=== PATIENT | female | born 1930 | race Caucasian/White ===

== ENCOUNTER 2017-06-10 22:26 | Inpatient (IN) | payer MEDICARE ==
[2017-06-11] MEDS ORDERED: Adacel (T-DAP) 0.5 ML VIAL ONE (00:26)
[2017-06-11 02:20] LABS: PTT 33.6 SEC (22.9-36.1); Prothrombin Time 12.7 SEC (12.0-14.7)
[2017-06-11 02:27] LABS: Hematocrit 41.3 % (36.0-47.0); Mean Platelet Volume 7.9 fL (7.4-10.4); Red Blood Cell (RBC) Count 4.29 mill/uL (4.20-5.40); White Blood Cell (WBC) Count 20.9 thou/uL (4.8-10.8)
[2017-06-11 02:43] LABS: ALT (SGPT) 30 U/L (8-55); AST (SGOT) 40 U/L (5-34); Alkaline Phosphatase 86 U/L (40-150); Anion Gap 15 mmol/L (10-20); BUN (Urea Nitrogen) 17 mg/dL (9.8-20.1); Bilirubin, Total 0.4 mg/dL (0.2-1.2); Calc. Creatinine Clearance 0 mL/min (70-130); Calcium 9.5 mg/dL (7.8-10.44); Carbon Dioxide 23 mmol/L (23-31); Chloride 103 mmol/L (98-107); Estimated GFR-MDRD 66; Globulin 3.4 g/dL (2.4-3.5); Protein, Total 7.4 g/dL (6.0-8.3)
[2017-06-11 02:47] LABS: Band 8 % (5-11); Neutrophil 73 % (42-75)
[2017-06-11] MEDS ORDERED: Acetaminophen 325 MG TAB PO PRN (02:50)
[2017-06-11] MEDS ORDERED: Ondansetron ODT 4 MG TAB SL PRN (02:50)
[2017-06-11] MEDS ORDERED: Ondansetron HCl/PF 4 MG/2 ML Vial IVP PRN ×2 (02:50→03:17)
[2017-06-11] MEDS ORDERED: Promethazine HCl 25 MG/ML VIAL IM PRN (03:17)
[2017-06-11] MEDS ORDERED: Dextrose 5% in Water 1,000 ML IV PRN (03:17)
[2017-06-11] MEDS ORDERED: Dextrose 50% Abboject 50 ML SYRINGE SLOW IVP PRN (03:17)
[2017-06-11] MEDS ORDERED: Ondansetron ODT 4 MG TAB PO PRN (03:17)
[2017-06-11] MEDS ORDERED: Sodium Chloride 0.9% 1,000 ML IV SCH (03:30)
[2017-06-11 03:39] VITALS: BMI 25.2
[2017-06-11] MEDS: Acetaminophen 325 MG TAB PO SCH ×3 (06:00→16:53)
[2017-06-11 06:24] LABS: PTT 29.6 SEC (22.9-36.1); Prothrombin Time 12.7 SEC (12.0-14.7)
[2017-06-11 06:40] LABS: Anion Gap 17 mmol/L (10-20); BUN (Urea Nitrogen) 16 mg/dL (9.8-20.1); Calc. Creatinine Clearance 53 mL/min (70-130); Calcium 9.6 mg/dL (7.8-10.44); Carbon Dioxide 21 mmol/L (23-31); Chloride 101 mmol/L (98-107); Estimated GFR-MDRD 67
--- NOTE | 2017-06-11 08:31 | RAD ---
FRONTAL VIEW CHEST: INDICATION: Fall with chest pain. COMPARISON: 09/26/14. FINDINGS: Lungs are mildly hyperinflated with interstitial prominence. No lobar consolidation, effusion, or d iscrete pneumothorax. Cardiac silhouette is mildly enlarged. IMPRESSION: 1. No focal consolidation. 2. Mild enlargement of cardiac silhouette. 3. Chronic obstructive pulmonary disease. POS: [facility]
--- NOTE | 2017-06-11 08:34 | CT ---
HEAD CT NONCONTRAST: INDICATION: Subdural hemorrhage, followup. FINDINGS: Stable slight nodularity along the left aspect of the posterior portion interhemispheric falx which again may relate to a minute volume of subdural hematoma. Otherwise, no interval acute mass produci ng hemorrhage is seen. There is prominent volume of the sella with internal soft tissue density. T he suprasellar mass has been documented on the preceding brain MRI. IMPRESSION: 1. Redemonstration of minute volume of density along the left aspect of the posterior interhemisphe jorge luis falx which could relate to subdural hemorrhage. 2. Redemonstration of expansile mass correlating to patient's known suprasellar mass. 3. Otherwise, no significant interval detrimental change. POS: [facility]
[2017-06-11] MEDS ORDERED: Famotidine 20 MG TAB PO SCH (09:00)
--- NOTE | 2017-06-11 11:34 | CON ---
DATE OF CONSULTATION: 06/11/2017 HISTORY OF PRESENT ILLNESS: The patient is an 86-year-old female with a past medical history of hypertension, hyperlipidemia, chronic gastrointestinal disease, prior TIA with residual left-sided weakness, history of Sellar tumor who presented to the ER for evaluation following a head injury after a slip and fall out of the recliner. Patient reports that she heard treat her in a back yard and got up suddenly out of recliner causing her to lose her balance and hit her head on a coffee table. The patient denies any LOC. She denies any significant pain, but does have complaints laceration to the back of her head. She was evaluated further to the emergency department with CT of the head that is concerning for small subdural hematoma and no other significant abnormalities were seen on CT. 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 There appears to be no change in this lesion. The patient's C-spine was negative for acute injury. The Trauma Service was also notified. PAST MEDICAL HISTORY: Hypertension, hyperlipidemia, gastrointestinal disease, TIA, and diverticulitis. PAST SURGICAL HISTORY: Appendectomy, breast cyst removal, cholecystectomy, orthopedic surgery with right hip replacement, left knee surgery. SOCIAL HISTORY: The patient lives at home. She does not smoke, drink or use any drugs. FAMILY HISTORY: Noncontributory. ALLERGIES: The patient has an allergy to CODEINE, PENICILLIN, and MILK PRODUCTS. REVIEW OF SYSTEMS: Positive for laceration to the posterior aspect of the scalp. Otherwise, negative for any other complaints. PHYSICAL EXAMINATION: VITAL SIGNS: Blood pressure 131/60, pulse 60, respiration rate 16, 98.2, 94% on room air. CONSTITUTIONAL: Awake, alert, comfortable in no acute distress. GCS of 15. HEAD: Slight tenderness to palpation over the posterior aspect of the occipital region with a small laceration present in this region as well. EYES: PERRLA. Extraocular movements intact. Sclerae are white. ENT: OP is clear, no hemotympanum or other obvious injuries to the face. NECK: Nontender to palpation. Free active range of motion. Supple. CARDIOVASCULAR: Regular rate and rhythm. LUNGS: Breathing comfortably. Symmetric chest expansion. MUSCULOSKELETAL: Good muscle tone throughout. Free active range of motion in all extremities. No obvious deformities. NEUROLOGIC: Alert and oriented x4. No focal deficits. Normal cranial nerve exam. Negative Cunningham's, negative clonus. ASSESSMENT: Fall, head injury, concern for subdural hematoma. PLAN: I have reviewed the CT. There is a questionable small subdural hematoma over the midline region. We will plan to monitor the patient closely and repeat head CT in the morning. If improved, patient will likely be discharged to home following a repeat scan. Trauma service has also been notified. Please reach out to the neurosurgical service for additional questions or concerns. ARI
[2017-06-11 12:08] VITALS: TEMP 98.3
--- NOTE | 2017-06-11 13:24 | HP ---
Joe Reyes PA-C dictating for Dr. Talib Gerber. CHIEF COMPLAINT: Evaluation of status post fall. HISTORY OF PRESENT ILLNESS: This is an 86-year-old female who was brought to the ER, she thought th ere was somebody in her backyard, and when she tried to get up to go check it out of her recliner, s he fell and hit her head in the back of coffee table. She denied any LOC. She does have laceration to the occiput. Neurosurgery has been called and evaluated this patient as well as trauma to admit . PAST MEDICAL HISTORY: Includes GERD, diverticulitis, TIA, hyperlipidemia, and hypertension. PAST SURGICAL HISTORY: Includes removal of cyst from breast, appendectomy, cholecystectomy, hystere ctomy, orthopedic surgery with right hip replacement, left knee surgery. PSYCHIATRIC HISTORY: Includes depression. SOCIAL HISTORY: Denies any smoking, drug, or alcohol use. REVIEW OF SYSTEMS: All 10 systems reviewed otherwise stated in HPI were negative. PHYSICAL EXAMINATION: HEENT: Normocephalic. There is a 2 cm L-shaped laceration to the occiput was repaired by the ER. EYES: A 3 mm bilaterally, equal, round, and reactive to light. NECK: No JVD, no masses. Trachea is midline. No cervical spine tenderness. CARDIOVASCULAR: S1, S2, regular rate and rhythm. PULMONARY: Clear bilaterally via auscultation. EXTREMITIES: Upper and lower extremities are intact. Positive pulses. No edema. NEUROLOGIC: GCS of 15. PSYCHIATRIC: Alert and oriented x3. LABORATORY DATA: Coags: PT of 12.7, INR 1, PTT 33.6. Other labs are pending. IMAGING: Brain CT shows a small subdural expressed by Radiology. Cervical spine with no inju ry. Stress CT spine was unremarkable. ASSESSMENT AND PLAN: An 86-year-old female status post fall with small subdural hemorrhage. Will b e brought to the surgical floor, frequent neuro checks by neurosurgeon's recommendation as well as a repeat head CT in 06:00 a.m. Patient will have PT and OT and cognitive service and then will be di scharged home if neurologically stays intact as well CT stable. The above patient has been discussed with Dr. Gerber and agreed with the above plan.
--- NOTE | 2017-06-11 13:39 | CT ---
PRELIMINARY REPORT/[facility]/EMERGENCY AFTER HOURS PROCEDURE: Addendum created by Andrew Zambrano MD on 06/11/2017 1:24 AM Central Time ([place] \[place]) Mild left occipital scalp swelling noted Addendum created by Andrew Zambrano MD on 06/11/2017 1:16 AM Central Time ([place]) THIS REPORT CONTAINS FINDINGS THAT MAY BE CRITICAL TO PATIENT CARE. The findings were verbally commu nicated via telephone conference with Willie Ruvalcaba at 1:15 AM CDT on 06/11/2017. The findings wer e acknowledged and understood. Initial Report created on 06/11/2017 1:12 AM Central Time ([place] \[place]\ [place]) EXAM: CT Head Without Intravenous Contrast CLINICAL HISTORY: 86 years old, female; Injury or trauma; Fall; Initial encounter; Blunt trauma (contusions or hematom as); Consciousness not specified; Patient HX: S/P fall TECHNIQUE: Axial computed tomography images of the head/brain without intravenous contrast. COMPARISON: No relevant prior studies available. FINDINGS: Brain: Trace midline subdural chest suspected images 21-24. Mild white matter disease. No edema. Enlargement of the sella chest at that with suspected mass is less extent into the suprasellar ciste rn Ventricles: Unremarkable. No ventriculomegaly. Bones/joints: Unremarkable. No acute fracture. Soft tissues: Unremarkable. Sinuses: Unremarkable as visualized. No acute sinusitis. Mastoid air cells: Unremarkable as visualized. No mastoid effusion. IMPRESSION: Trace midline subdural hemorrhage suspected. 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 Findings may be further and non-urgent basis with a pre-and postcontrast pituitary MRI Thank you for allowing us to participate in the care of your patient. Dictated and Authenticated by: Andrew Zambrano MD 06/11/2017 1:12 AM Central Time ([place] \[place]\ [place]) FINAL REPORT CT BRAIN WITHOUT CONTRAST: I agree with the preliminary report given by Dr. Andrew Zambrano of [employer]. POS: [facility]
--- NOTE | 2017-06-11 13:41 | CT ---
PRELIMINARY REPORT/[facility]/EMERGENCY AFTER HOURS PROCEDURE: EXAM: CT Cervical Spine Without Intravenous Contrast CLINICAL HISTORY: 86 years old, female; Injury or trauma; Fall; Initial encounter; Blunt trauma; Patient HX: S/P fall TECHNIQUE: Axial computed tomography images of the cervical spine without intravenous contrast. COMPARISON: No relevant prior studies available. FINDINGS: Vertebrae: Loss of vertebral body height, presumed degenerative No acute fracture. Discs/spinal canal/neural foramina: No acute findings. Multilevel central canal and foraminal stenos is most pronounced at C6-C7 Soft tissues: Unremarkable. Lung apices: Unremarkable as visualized. IMPRESSION: No definite acute cervical fracture observed Thank you for allowing us to participate in the care of your patient. Dictated and Authenticated by: Andrew Zambrano MD 06/11/2017 1:24 AM Central Time ([place] \[place]\ [place]) FINAL REPORT CERVICAL SPINE CT NONCONTRAST: FINDINGS/IMPRESSION: I agree with the preliminary interpretation above. No acute fracture or subluxation. Extensive degenerative change redemonstrated, when references 01/19/15 exam. POS: [facility]
[2017-06-11 17:03] VITALS: BP 96/64
== END 2017-06-11 19:10 | disposition home or self-care (01) | DRG 86 ==
LOC: ERS 22:26 → SURG A 06-11 02:03
PROVIDERS: ADMIT Surgery; ATTEND Surgery
DX: S06.5X0A Traumatic subdural hemorrhage without loss of consciousness, initial encounter (principal); I69.354 Hemiplegia and hemiparesis following cerebral infarction affecting left non-dominant side; S01.01XA Laceration without foreign body of scalp, initial encounter; I10 Essential (primary) hypertension; Z96.641 Presence of right artificial hip joint; W19.XXXA Unspecified fall, initial encounter; Y92.019 Unspecified place in single-family (private) house as the place of occurrence of the external cause; Z88.0 Allergy status to penicillin; Z88.5 Allergy status to narcotic agent; Z91.011 Allergy to milk products
CPT/HCPCS: 12001; 36415; 70450; 71010; 72125; 80053; 85025; 85610; 85730; 90471; 90715; 93005; G0390; G8978-GP-CJ; G8979-GP-CI; G9168-GN-CI; G9169-GN-CI; G9170-GN-CI

== ENCOUNTER 2019-07-07 16:25 | Emergency (ER) | payer MEDICARE ==
--- NOTE | 2019-07-07 17:14 | RAD ---
EXAM: Chest 2 views: HISTORY: Syncope COMPARISON: 06/11/2017 FINDINGS: Minimal stable chronic lung changes with old granulomatous disease. Heart size:Within normal limits. Lungs:Clear of acute process. Atherosclerotic changes of the aorta. No confluent pneumonia, overt edema, pleural effusion, pneumothorax, or other significant acute proce ss. IMPRESSION: Stable chest. Atherosclerosis of the aorta. No acute intrathoracic disease.
[2019-07-07 17:15] LABS: #Basophils 0.1 thou/uL (0.0-0.2); #Eosinphils 0.2 thou/uL (0.0-0.7); #Lymphocytes 2.3 thou/uL (1.20-3.40); #Monocytes 0.9 thou/uL (0.11-0.59); #Neutrophils 11.1 thou/uL (1.40-6.50); %Basophils 0.6 % (0.0-1.0); %Eosinophils 1.2 % (0.0-10.0); %Lymphocytes 15.9 % (21.0-51.0); %Monocytes 6.2 % (0.0-10.0); %Neutrophils 76.1 % (42.0-75.0); Hemoglobin 13.9 g/dL (12.0-16.0); Mean Corpuscular HGB CONC 34.7 g/dL (32.0-36.0); Mean Corpuscular Hemoglobin 32.5 pg (27.0-31.0); Mean Corpuscular Volume 93.7 fL (78.0-98.0); Mean Platelet Volume 8.3 fL (7.4-10.4); Platelet Count 379 thou/uL (130-400); RBC Distribution Width 11.9 % (11.5-14.5); Red Blood Cell (RBC) Count 4.28 mill/uL (4.20-5.40); White Blood Cell (WBC) Count 14.5 thou/uL (4.8-10.8)
[2019-07-07 17:35] LABS: ALT (SGPT) 22 U/L (8-55); AST (SGOT) 34 U/L (5-34); Albumin 4.1 g/dL (3.4-4.8); Alkaline Phosphatase 78 U/L (40-110); Anion Gap 14 mmol/L (10-20); BUN (Urea Nitrogen) 11 mg/dL (9.8-20.1); Bilirubin, Total 0.4 mg/dL (0.2-1.2); Calc. Creatinine Clearance 0 mL/min (70-130); Calcium 9.5 mg/dL (7.8-10.44); Carbon Dioxide 23 mmol/L (23-31); Chloride 105 mmol/L (98-107); Estimated GFR-MDRD 56; Globulin 3.2 g/dL (2.4-3.5); Glucose 131 mg/dL (83-110); Potassium 3.2 mmol/L (3.5-5.1); Protein, Total 7.3 g/dL (6.0-8.3); Sodium 139 mmol/L (136-145)
--- NOTE | 2019-07-07 17:54 | CT ---
EXAM: Brain CTWithout contrast: HISTORY: Syncope COMPARISON: 06/11/2017 FINDINGS: Stable atrophy and chronic white matter ischemic change. Stable expansile intrasellar mass. No midline shift. No intra or extra-axial hemorrhage. Sinuses and mastoids are clear of acute process. IMPRESSION: No acute hemorrhage. Stable from prior study.
[2019-07-07] MEDS ORDERED: Potassium Chloride 20 MEQ TAB ONE (19:29)
[2019-07-07] MEDS ORDERED: Potassium Chloride 20 MEQ TAB PO SCH (19:30)
== END 2019-07-07 19:48 | disposition home or self-care (01) ==
LOC: ERS 16:25
DX: R55 Syncope and collapse (principal); E87.6 Hypokalemia; R19.7 Diarrhea, unspecified; I10 Essential (primary) hypertension; E78.5 Hyperlipidemia, unspecified; F32.9 Major depressive disorder, single episode, unspecified; Z86.73 Personal history of transient ischemic attack (TIA), and cerebral infarction without residual deficits; Z79.899 Other long term (current) drug therapy
CPT/HCPCS: 36415; 70450; 71045; 80053; 84484; 85025; 93005